=== PATIENT | female | born 1955 | race Caucasian/White ===

== ENCOUNTER 2017-06-03 07:46 | Observation (INO) | payer OTHER ==
[2017-06-03] MEDS ORDERED: Acetaminophen TAB* 325 MG PO ONE (08:26)
[2017-06-03] MEDS ORDERED: NS 0.9% 1000 ML* 1,000 ML IV ONE ×2 (08:26→09:28)
[2017-06-03 08:50] LABS: Hematocrit 38 % (35-47); Hemoglobin 12.6 g/dl (12.0-16.0); Mean Corpuscular HGB Conc 34 g/dl (31-36); Mean Corpuscular Hemoglobin 31 pg (27-31); Mean Corpuscular Volume 90 fL (80-97); Mean Platelet Volume 9 um3 (7.4-10.4); Red Blood Count 4.15 10^6/ul (4.0-5.4); Red Cell Distribution Width 14 % (10.5-15); White Blood Count 7.9 10^3/ul (3.5-10.8)
[2017-06-03 09:07] LABS: ALT 14 U/L (7-52); Albumin 3.2 g/dL (3.2-5.2); Alkaline Phosphatase 43 U/L (34-104); BUN/Creatinine Ratio 18.2 (8-20); Blood Urea Nitrogen 16 mg/dL (6-24); C Reactive Protein 73.29 mg/L (< 5.00); CO2 Carbon Dioxide 25 mmol/L (22-32); Chloride 104 mmol/L (101-111); EGFR African American 84.3 (>60); EGFR Non-African American 65.5 (>60); Globulin 2.8 g/dL (2-4); Glucose 95 mg/dL (70-100); Lipase 13 U/L (11.0-82.0); Sodium 135 mmol/L (133-145)
[2017-06-03 09:27] LABS: Anion Gap 6 mmol/L (2-11)
[2017-06-03] MEDS ORDERED: Iohexol 300* (CONTRAST) 10 ML SDV IV ONE (09:27)
[2017-06-03] MEDS ORDERED: Ketorolac INJ* 30 MG/ML 1 ML VIAL IM ONE (10:01)
[2017-06-03] MEDS ORDERED: Ketorolac INJ* 30 MG/ML 1 ML VIAL IV PUSH ONE (10:02)
[2017-06-03 10:16] LABS: Urine Bacteria Absent (Absent); Urine Bilirubin Negative (Negative); Urine Glucose Negative (Negative); Urine Nitrite Negative (Negative)
[2017-06-03] MEDS ORDERED: Ciprofloxacin 400MG IVPREMIX(* 400 MG/200 ML BAG IVPB ONE (10:41)
--- NOTE | 2017-06-03 10:42 | RAD ---
CLINICAL HISTORY: Abdominal pain COMPARISON: None TECHNIQUE: Multiple contiguous axial CT scans were obtained of the abdomen and pelvis after the administration of intravenous contrast. Coronal and sagittal multiplanar reformations are submitted for review. Oral contrast was administered. Delayed images were obtained through the abdomen and pelvis. FINDINGS: LUNG BASES: The lung bases are clear. LIVER: The liver is normal in shape, size, contour, and attenuation. BILE DUCTS: There is no intrahepatic or extrahepatic biliary dilatation. GALLBLADDER: The gallbladder is not visualized. Surgical clips are noted in the gallbladder fossa. PANCREAS: The pancreas is normal, without mass or ductal dilatation. SPLEEN: Normal in size and appearance. UPPER GI TRACT: Evaluation of the gastrointestinal tract is limited by incomplete gastric distention. The upper GI tract is unremarkable. SMALL BOWEL AND MESENTERY: The small bowel is normal in contour, course, and caliber. There is no obstruction or dilatation. COLON: There is diverticulosis of the descending and sigmoid colon. There is mucosal thickening of the sigmoid colon. There is mild stranding of the fat along the sigmoid colon. ADRENALS: Normal bilaterally. KIDNEYS: The kidneys are normal in shape, size, contour, and axis. There is no hydronephrosis or nephrolithiasis. BLADDER: The bladder is smooth in contour. PELVIC ORGANS: The pelvic organs are not visualized. AORTA: The aorta is normal. IVC: Unremarkable LYMPH NODES: There is no lymphadenopathy by size criteria. ABDOMINAL WALL: There is no evidence for abdominal wall hernia. BONES AND SOFT TISSUES: There are mild diffuse degenerative changes. OTHER: None IMPRESSION: SIGMOID DIVERTICULITIS, WITHOUT LOCULATED FLUID COLLECTION TO SUGGEST ABSCESS.
[2017-06-03] MEDS ORDERED: metroNIDAZOLE TAB* 250 MG PO ONE (10:55)
[2017-06-03] MEDS ORDERED: NS 0.9% 1000 ML* 2,000 ML IV ONE (12:13)
[2017-06-03] MEDS ORDERED: NS 0.9% 1000 ML* 1,000 ML IV SCH (12:15)
[2017-06-03] MEDS ORDERED: hydrALAZINE IV* 20 MG/ML VIAL IV SLOW PU PRN ×2 (12:20→14:16)
[2017-06-03] MEDS: Morphine INJ* 2 MG/ML 1 ML SYRINGE (TWO MG - NEW SYRINGE VERSION) IV PRN ×2 (12:38→18:41)
[2017-06-03] MEDS ORDERED: Lisinopril TAB* 10 MG PO SCH (13:00)
--- NOTE | 2017-06-03 13:33 | RAD ---
HISTORY: Abdominal pain COMPARISONS: CT dated June 03, 2017 VIEWS: Frontal views of the abdomen. FINDINGS: BOWEL: There is a nonspecific bowel gas pattern, with nondilated small bowel gas noted. Oral contrast is noted within the colon. CALCULI: There are no abnormal calculi. BONES AND SOFT TISSUES: There are no osseous abnormalities. OTHER FINDINGS: The lung bases are clear. There is no subphrenic gas. IMPRESSION: NONSPECIFIC BOWEL GAS PATTERN. ORAL CONTRAST IS NOTED WITHIN THE COLON.
--- NOTE | 2017-06-03 14:05 | PN ---
Progress Note - Progress Note Date of Service: 06/03/17 Note: Brief Surgery Note (full consult dictated): S: 62 yo female w/ lower abd pressure/pain since Friday pm, assoc w/ shakes, chills, generalized weakness. Seen at [facility] office yesterday; dx'd w/ UTI; has had 2 doses of Cipro. This a.m. had normal BM w/ sig amt of blood, on and around the stool. Also today c/o RUQ pain, colicky. Has also had one episode of diarrhea since arrival. No prior episodes of anything similar. Mult previous abd surg incl laparotomies for SBO (w/ rsxn), appy, and lap robbin. O: tmax 102.2 other VS noted Gen: WN, WD in NAD Heart: reg Lungs: basically clear w/ a few scattered crackles Abd: mult surg scars; distended; +BS (hyper); soft; moderate tenderness in lower abd, midline as well as RUQ. No peritoneal signs. No CVAT. No hernias. Labs: notable for normal WBC, Hgb, lactate, LFTs, lipase, ammonia; elevated CRP ; U/A w/ WBCs and RBCs as well as 1+ ketones and 3+ leuk esterase. CT Abd and pelvis w/ po and IV contrast: mild inflammatory changes in the region of the sigmoid colon in assoc w/ extensive diverticulosis; no abscess or free air; copious stool throughout colon. A: sigmoid diverticulitis w/o perforation or abscess; I suspect the R-sided colicky pain is from stool/constipation and will resolve with improvement of the diverticulitis. The bleeding could be r/t the d-itis and/or from internal hemorrhoids (noted on her last colonoscopy 2010). P: agree w/ admission for IV hydration, IV abx (Cipro and flagyl), bowel rest, and serial labs and physical exam. Will discuss w/ Dr. Bhatt who will also see her to confirm findings and recommendations.
[2017-06-03] MEDS: Lisinopril TAB* 10 MG PO SCH (15:57)
[2017-06-03] MEDS: Acetaminophen TAB* 325 MG PO PRN (15:57)
[2017-06-03] MEDS: Heparin VIAL(*) 5000 UNITS/ML VIAL (FIVE THOUSAND) SUBCUT SCH ×2 (15:59→21:52)
[2017-06-03] MEDS: Albuterol 2.5 MG/3 ML NEB.SOL* (0.083%) INH PRN (16:06)
--- NOTE | 2017-06-03 17:19 | ED ---
Eliud Pop Angela, scribed for Ramin Sanders MD on 06/03/17 at 0818 . GI/ HPI - HPI Summary HPI Summary: This pt is a 62 y/o female [facility]/o bloody stools today and abd pain since yesterday. Pt reports that she has not been feeling well for the last 4 days. She states that she has had bad chills, intermittent fever (max of 102 F), decreased PO intake, and sleeping all the time. Yesterday, she developed lower abd pain. Pt went to her PCP in [facility] yesterday and had blood in her urine. She was put on Cipro and was tested for sepsis there. Pt notes that his morning she had a bowel movement with blood. She additionally c/o nausea, feeling disorganized. She states she couldn't walk her dogs yesterday due to almost falling. Pt denies vomiting, diarrhea. - History of Current Complaint Chief Complaint: EDAbdPain Time Seen by Provider: 06/03/17 08:14 Stated Complaint: BLOOD IN STOOL Hx Obtained From: Patient Onset/Duration: Started Days Ago, Still Present Timing: Lasting Days Vaginal Bleeding Description: Bright Red Pain Intensity: 8 Location of Pain: Other - right sided Associated Signs and Symptoms: Positive: Nausea, Blood w/Stool, Fever, Chills, Abdominal Pain, Other: - decreased PO intake, not eating well, disorganized. Negative: Vomiting - Additional Pertinent History Primary Care Physician: SUSANNAH - Allergy/Home Medications Allergies/Adverse Reactions: Allergies Allergy/AdvReac Type Severity Reaction Status Date / Time Latex Allergy Severe ANAPHYLACTI Verified 06/03/17 07:50 C Cephalexin [From Keflex] Allergy Hives Verified 06/03/17 07:50 Prednisone Allergy See Comment Verified 06/03/17 08:06 Home Medications: Home Medications Benazepril (NF) [Lotensin (NF)] 20 mg PO DAILY 06/03/17 [History Confirmed 06/03] Ciprofloxacin TAB* [Cipro 500 MG TAB*] 500 mg PO BID 06/03/17 [History Confirmed 06/03/17] Mometasone/Formoter 200/5 MDI* [Dulera 200/5 MDI*] 2 puff INH BID 06/03/17 [ History Confirmed 12/05/17] PMH/Surg Hx/FS Hx/Imm Hx Endocrine/Hematology History: Denies: Hx Diabetes Cardiovascular History: Reports: Hx Hypertension - on medication for Respiratory History: Reports: Hx Asthma - on medication for Comment Only: Hx Pulmonary Edema - ANKLE SWELLING IN THE PAST GI History: Reports: Hx Gastroesophageal Reflux Disease - prilosec PRN, Other GI Disorders - twisted intestine x2 20 years ago Sensory History: Reports: Hx Contacts or Glasses - GLASSES, Hx Hearing Aid Opthamlomology History: Reports: Hx Contacts or Glasses - GLASSES - Surgical History Surgery Procedure, Year, and Place: HYSTERECTOMY-. BLADDER LIFT. PAROTID TUMORS REMOVED. 2 SURGERIES FOR TWISTED INTESTINE. TONSILS. KNEE SURGERY Hx Anesthesia Reactions: No Infectious Disease History: Yes Infectious Disease History: Denies: Traveled Outside the [place] in Last 30 Days - Family History Known Family History: Positive: Hypertension - father, Diabetes - father, Other - Mother: emphysema. Father: stroke, [place] - Social History Alcohol Use: Rare Substance Use Type: Reports: None Smoking Status (MU): Never Smoked Tobacco Review of Systems Constitutional: Other - decreased PO intake, sleeping a lot Positive: Fever - intermittent, Chills Eyes: Negative ENT: Negative Gastrointestinal: Other - bloody stools Positive: Abdominal Pain, Nausea. Negative: Vomiting Positive: hematuria Musculoskeletal: Negative Skin: Negative Neurological: Negative All Other Systems Reviewed And Are Negative: Yes Physical Exam - Summary Physical Exam Summary: VITAL SIGNS: Reviewed. GENERAL: Patient is a well-developed and nourished female who is lying comfortable in the stretcher. Patient is not in any acute respiratory distress. HEAD AND FACE: Normocephalic and atraumatic. EYES: PERRLA, EOMI x 2, No injected conjunctiva. EARS: Hearing grossly intact. Ear canals and tympanic membranes are WNL. MOUTH: Oropharynx within normal limits. NECK: Supple, trachea is midline, no adenopathy, no JVD. CHEST: Symmetric, no tenderness at palpation LUNGS: Clear to auscultation bilaterally. No wheezing or crackles. CVS: RRR, S1 and S2 present, no murmurs or gallops appreciated. ABDOMEN: Soft. Right sided tenderness. No signs of distention. Positive bowel sounds. No rebound no guarding, and no masses palpated. No abdominal bruit or pulsations. 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 No hemorrhoids. No bright red blood or gross old blood. No melena. EXTREMITIES: FROM in all major joints, no edema, no cyanosis or clubbing. NEURO: Alert and oriented x 3. No acute neurological deficits. Speech is normal. SKIN: Dry and warm Triage Information Reviewed: Yes Vital Signs On Initial Exam: Initial Vitals Temp Pulse Resp BP Pulse Ox 99.7 F 114 16 149/81 97 06/03/17 07:50 06/03/17 07:50 06/03/17 07:50 06/03/17 07:50 06/03/17 07:50 Vital Signs Reviewed: Yes - [place] Coma Scale Coma Scale Total: 15 Diagnostics - Vital Signs Vital Signs Temp Pulse Resp BP Pulse Ox 06/03/17 07:50 99.7 F 114 16 149/81 97 - Laboratory Result Diagrams: 06/03/17 08:28 06/03/17 08:28 Lab Statement: Any lab studies that have been ordered have been reviewed, and results considered in the medical decision making process. - CT Abdomen/Pelvis CT CT Interpretation: Positive (See Comments) - IMPRESSION: Sigmoid diverticulitis , without loculated fluid collection to suggest abscess. ED physician has reviewed this radiology report and agrees. CT Interpretation Completed By: Radiologist - EKG 0842 Cardiac Rate: Tachycardia EKG Rhythm: Sinus Rhythm - at 100 bpm EKG Interpretation: No ST elevation. Normal axis. GIGU Course/Dx - Course Assessment/Plan: This pt is a 62 y/o female [facility] c/o bloody stools today and abd pain since yesterday. Pt reports that she has not been feeling well for the last 4 days. She states that she has had bad chills, intermittent fever (max of 102 F), decreased PO intake, and sleeping all the time. Yesterday, she developed lower abd pain. Pt went to her PCP in [facility] yesterday and had blood in her urine. She was put on Cipro and was tested for sepsis there. Pt notes that his morning she had a bowel movement with blood. She additionally c/o nausea, feeling disorganized. She states she couldn't walk her dogs yesterday due to almost falling. Pt denies vomiting, diarrhea. Test results without any significant abnormalities except for CRP of 72.2. Urinalysis is contaminated, therefore Im unable to determine if pt has a UTI. Abdomen/pelvis CT shows sigmoid diverticulitis, without loculated fluid collection to suggest abscess. At this point, I believe the pt has acute diverticulitis and maybe the pt is also dealing with a UTI, however Im unable to determine this due to urine contamination. Since the pt has fever and slight confusion, we will treat the pt with Ciprofloxacin and Flagyl. At this point I discussed the case with Dr. Romero, hospitalist, who accepted the pt for admission. - Diagnoses Provider Diagnoses: Acute diverticulitis, UTI (urinary tract infection) - Physician Notifications Discussed Care Of Patient With: Lizette Romero Time Discussed With Above Provider: 10:53 Instructed by Provider To: Other - I discussed pt care with Dr. Romero, who has agreed to admit the pt. Discharge - Discharge Plan Condition: Stable Disposition: ADMITTED TO [facility] The documentation as recorded by the Eliud broderick Angela accurately reflects the service I personally performed and the decisions made by , Ramin Sanders MD.
[2017-06-03] MEDS ORDERED: Acetaminophen TAB* 325 MG PO PRN (17:20)
--- NOTE | 2017-06-03 18:40 | PN ---
Progress Note - Progress Note Date of Service: 06/03/17 Note: Patient seen and examined by me. Chart and CT images reviewed. Discussed with YUMIKO Tracy and agree with his findings, assessment, and plan.
--- NOTE | 2017-06-03 19:46 | HP ---
CC: Dr. Martin; Dr. Bhatt. * HISTORY AND PHYSICAL: DATE OF ADMISSION: 06/03/17 PRIMARY CARE PROVIDER: Dr. Martin. ATTENDING PHYSICIAN WHILE IN THE HOSPITAL: Lizette Romero DO * (report dictated by Drake Huerta NP). CONSULTING SURGEON: Dr. Bhatt. CHIEF COMPLAINT: Abdominal discomfort. HISTORY OF PRESENT ILLNESS: Ms. Key is a 62-year-old female patient, she has a history of hypertension, history of stroke, asthma, history of GERD, and history of rheumatoid arthritis, not on treatment, who comes into our ER today stating that since Friday she has had progressive worsening abdominal discomfort that she says is much worse when she goes to stand. She says that she has been having chills and fevers at home, but none were documented here. She says that she has been having difficulty with her appetite, but she is essentially anorexic. She does not feel like eating at all. She has been feeling nauseated. She has noticed that her stomach has been getting progressively more distended and she was concerned yesterday and actually went to her primary. This was evaluated and started on Cipro, was told to come to the ER should she has any new symptoms. While today, she had an episode of bright red blood per rectum. She said that she has been having some pain, it is mostly she describes on her right side, right lower and right upper quadrant , particularly when she stands. She says she does not have an appendix, it was taken out with one of her previous surgeries and she also has no gallbladder that was removed as well. She has never been told that she has had diverticulosis and she has never had diverticulitis in the past. She had a colonoscopy within the last year and a half, she believes with Dr. Blair, she is unsure. She denies having any chest pain. Denies having any shortness of breath. She says she feels like there is a band around the top part of her stomach. She was concerned because her symptoms were not getting any better, so she decided to come into the ER today to be further evaluated. PAST MEDICAL HISTORY: Significant for: 1. Hypertension. 2. History of CVA. 3. History of asthma. 4. GERD. 5. History of rheumatoid arthritis. PAST SURGICAL HISTORY: The patient has had: 1. Knee arthroscopy. 2. Hysterectomy. 3. She has had a bladder lift. 4. She has had parotid tumor removal. 5. She has had 2 abdominal surgeries in the past related to twisting in her intestine that is what she says. 6. She has a history of cholecystectomy and she says she had her appendix removed as well. MEDICATIONS: Home meds include: 1. Dulera 2 puffs inhaled b.i.d. 2. Cipro 500 mg p.o. b.i.d. 3. Benazepril 20 mg p.o. daily. 4. She also takes nebulizer twice a day as well. She did not give the name of this. ALLERGIES TO MEDICATIONS: Include LATEX, KEFLEX, PREDNISONE. FAMILY HISTORY: Mother had a history of COPD. Father had a history of CVA, hypertension, and diabetes. SOCIAL HISTORY: The patient is a nonsmoker. She does not drink alcohol. Surrogate decision maker is her son, Aden. REVIEW OF SYSTEMS: There is no documented fever here, she does admit to having them at home. She denies having any significant weight change. There was no double vision. No ear discharge. No rhinorrhea. No sore throat. No thyroid enlargement. Denied having any chest discomfort. She denies having any shortness of breath. There is abdominal pain per my HPI. There is one episode of nausea. There is no vomiting. No dysuria. No frequency. No seizure. No loss of consciousness. No pruritus. No skin ulcerations. Review of 14 systems completed, all others negative. PHYSICAL EXAMINATION GENERAL: At this time, Ms. Key is a 62-year-old female patient. She is sitting in the ED stretcher. She does not appear to be in any acute distress. She is awake and she is alert. VITAL SIGNS: Last blood pressure was 176/60, her heart rate is 90, her respirations were 18, her O2 sat was 96%, and her temperature was 99.7. HEENT: Head: Atraumatic. Eyes: EOMs were intact. Sclerae anicteric and not pale. Throat: Oral mucosa appears to be moist. No oropharyngeal erythema. NECK: Supple. LUNGS: Clear to auscultation bilaterally. No wheezes, rales, or rhonchi. HEART: Sounds S1, S2. Regular rate and rhythm. No murmurs, rubs, or gallops. ABDOMEN: Her abdomen was distended. There was tender in the right upper quadrant. Bowel sounds were present. EXTREMITIES: Pulses were 2+ throughout. She is moving all 4 extremities with 5 /5 strength. NEUROLOGIC: She is awake. She is alert. She is oriented x3. She had no gross focal deficits. SKIN: Intact. DIAGNOSTIC STUDIES/LAB DATA: Today, WBC 7.9, RBC of 4.15, hemoglobin 12.6, hematocrit 38, platelet count of 179. PTT was 32.3. The sodium was 135, potassium pending, chloride of 104, bicarb 25, BUN 16, creatinine 0.88, glucose 95, lactic was 0.8, calcium 9.0. Total bilirubin 0.9, AST pending, ALT 14, alk phos 43. Ammonia 25. CRP of 73.29, BNP 25, lipase was 13. Urine showed 1+ ketones, 1+ blood, positive urobilinogen, 3+ leukocyte esterase, 3+ wbc's, and 3 + rbc's. She did have an abdominal pelvis CT scan today, with impression sigmoid diverticulitis without loculated fluid collection to suggest abscess. She had an EKG obtained today as well, which shows a sinus tachycardia rate of 100. No ST elevations or T-wave inversions. This is reviewed with the previous EKG, appears to be similar with exception of sinus tachycardia is now new. Old medical records were reviewed. ASSESSMENT AND PLAN: Ms. Key is a 62-year-old female patient coming into the ER today with complaints of abdominal discomfort. She will be admitted under inpatient status for: 1. Abdominal pain. This is an atypical presentation. She is having mostly if her pain on her right side. She has no gallbladder and no appendix. Her labs do not suggest obstruction of biliary tree. She is not really tender on the left side. At this point, I am going to treat her for diverticulitis with normal saline. We will panculture her, we will get her on Flagyl and Cipro, but I think a surgical consult is appropriate. Given that she is tender on the right upper quadrant. She is distended as well. I would like to have them evaluated to make sure if there is any other etiology or pathology that we may be overlooking and have the surgical team weigh in on this. We will continue to follow her closely. She is n.p.o. until I can get surgical evaluation. I have placed a call out to Dr. Bhatt. 2. Hypertension. The same acute illness. Last blood pressure was 170, but she is having a fair amount of pain and given some morphine. I am holding her antihypertensives in the setting of acute illness and we will follow. 3. History of cerebrovascular accident. Continue with her current medical regimen. 4. History of GERD. She denies this, but at this point it is not really an active issue. She can follow with her primary. 5. History of asthma. We are going to continue her nebs and her Dulera as prescribed. 6. Rheumatoid arthritis. Continue her medications as prescribed. 7. DVT prophylaxis. She is at high risk and placed on heparin subcu. 8. Code status. She is full code. 9. Fluids, electrolytes, and nutrition. NPO, normal saline at 100 an hour after 2 L of bolus. TIME SPENT: On the admission was 60 minutes; greater than half the time was spent [id number] with the patient obtaining my history and physical, other half of the time was spent going over the plan of care with the patient and implementing plan of care. I did discuss plan of care with my attending, Dr. Romero; she is in agreement. DRAKE HUERTA NP [id number]/[facility] #: [id number] [place]
[2017-06-03] MEDS: metroNIDAZOLE IV 500 MG/100ML* 500 MG/100 ML BAG IVPB SCH (19:59)
[2017-06-03 20:13] LABS: Hematocrit 33 % (35-47); Hemoglobin 11.3 g/dl (12.0-16.0)
[2017-06-03] MEDS: Mometasone/Formoter 200/5 MDI INH SCH (21:30)
[2017-06-03] MEDS: Albuterol/Ipratropium NEB.SOL* Albuterol 2.5 MG/Ipratropium 0.5 MG 3 ML INH SCH (21:30)
--- NOTE | 2017-06-03 21:51 | CONS ---
CC: [facility]; Dr. Martin * SURGICAL CONSULTATION NOTE: DATE OF CONSULT: 06/03/17 ATTENDING SURGEON: Dr. Osmin Bhatt. CHIEF COMPLAINT: Abdominal pain. HISTORY OF PRESENT ILLNESS: This is a 62-year-old female who beginning Friday evening noticed some lower abdominal discomfort. She describes it as pressure. There were no other associated symptoms at that time. However, on Friday, she began to notice shaking chills, sweats, and generalized weakness. This continued into Friday with the same ongoing lower abdominal discomfort. She was seen at the [facility] on Friday thinking that she might have a UTI. Apparently, urinalysis confirmed that as a possibility and she was started on Cipro which she has completed 2 doses. This morning, she had an otherwise normal bowel movement but with significant amounts of blood around and on the stool. She had been otherwise having normal bowel movements up until that time. Since her arrival here in the ED, she has had 1 episode of diarrhea. She has been passing flatus right along. She denies nausea or vomiting, but has been anorexic. She had been tolerating fluids. She did undergo colonoscopy in 2010, which was notable for tortuous colon and some internal hemorrhoids, but otherwise normal. She has never had any prior similar episodes. PAST MEDICAL HISTORY: Asthma (just finished a recent course of prednisone which she finished about 10 days ago; she is followed by [facility]); rheumatoid arthritis (no apparent active disease); hypertension ( intermittent for which she uses benazepril on a p.r.n. basis); stroke 5 to 6 years ago with dysphasia and right-sided weakness, but with full resolution of deficits and negative workup. She denies any known history of cardiovascular disease or personal history of cancer, bleeding, or thromboembolic disease. PAST SURGICAL HISTORY: Previous surgeries include tonsillectomy remotely, left parotid surgery for benign tumors, vaginal hysterectomy without salpingo- oophorectomy, a bladder lift surgery, 2 laparotomies for what sounds like small bowel obstruction with resection, and incidental appendectomy at the second surgery. Laparoscopic cholecystectomy in [address] Navas. No reported surgical or anesthesia complications. CURRENT MEDICATIONS: 1. Benazepril 20 mg once daily p.r.n. (see above). 2. Cipro 500 mg b.i.d. (see above). 3. Dulera 200/5 two inhalations b.i.d. 4. Albuterol nebulizer 2 treatments b.i.d. 5. Recent course of prednisone 60 mg, which she completed about 10 days ago. ALLERGIES: KEFLEX (rash) (the patient has tolerated penicillin). FAMILY HISTORY: Negative for colorectal cancer, anesthesia problems, bleeding, or clotting disorders. SOCIAL HISTORY: The patient lives alone. She is . 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 She denies use of tobacco. She drinks less than or equal to 1 drink per week. She denies any other recreational drug use. REVIEW OF SYSTEMS: General: Recent exacerbation of her asthma with completion of a 3- to 4-week course of prednisone. She did have some consequent weight gain (still up a net of approximately 20 pounds from her baseline). No other recent constitutional symptoms or acute illnesses other than described in the HPI. Cardiovascular: No chest pain, palpitations, or history of heart disease. Respiratory: As above. At the present time, no shortness of breath or cough. GI: As above per HPI. No additions. : Other than some pressure sensation in the suprapubic region, she specifically denies dysuria, increased frequency, or gross hematuria. 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 Endocrine: No diabetes or thyroid dysfunction. 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 PHYSICAL EXAM: Height 5 feet 9 inches, weight 175 pounds. T-max 102.2, blood pressure 151/74, pulse 99 to 114, respirations 16, room air saturation 96%. General: Well-nourished, well-developed female, in no acute distress. Skin: Warm and dry. No suspicious rashes or lesions. HEENT: Pupils equal, round, and reactive. EOMs intact. No conjunctival pallor. Oropharynx: Teeth in good repair. No intraoral lesions. Mucous membranes moist. Neck: No lymphadenopathy, thyromegaly, or masses. Heart: Regular rate and rhythm. No murmur noted. Lungs: Clear to auscultation with a few scattered crackles. No wheezes or rales. Breasts: Not examined. Abdomen: Multiple well-healed surgical scars. She appears distended. Bowel sounds are present and somewhat hyperactive. Abdomen is soft with moderate tenderness in the suprapubic region as well as in the right upper quadrant, but no peritoneal signs. There are no palpable masses or hernias. Back: No spinous process or CVA tenderness. Extremities: No edema. Neurological: Grossly intact. DIAGNOSTIC STUDIES/LAB DATA: White blood cell count 7900, hemoglobin 12.6. Chemistries were essentially normal with the exception of CRP 73. Specifically , her liver function tests, ammonia and lipase levels are normal. Her potassium and AST were unable to be run because of hemolysis. Urinalysis was notable for 1+ ketones and blood, 3+ leukocyte esterase, and 3+ rbc's and wbc' s. Stool was checked in the ED and found to be heme negative. CT scan of the abdomen and pelvis with oral and IV contrast was reviewed personally. There is sigmoid diverticulitis with mild inflammatory changes, but no evidence of perforation or abscess. There is extensive stool throughout the colon especially on the right side. IMPRESSION: Acute sigmoid diverticulitis without abscess or perforation. My impression is that the right-sided abdominal pain which is colicky is related to stool within the colon and consequent constipation from the distal inflammatory process. PLAN: Agree with admission for IV hydration, IV antibiotics, pain control, and bowel rest. The patient understands that surgery is sometimes indicated acutely for diverticulitis, but that most cases will respond to medical therapy. We will continue to follow the patient with serial exams as well as labs which are ordered for tomorrow. The case was discussed with Dr. Bhatt, who will also see the patient for confirmation of findings and recommendations. YUMIKO LAO [id number]/[facility] #: [id number] ADEOLA
[2017-06-03] MEDS: Ciprofloxacin 400MG IVPREMIX(* 400 MG/200 ML BAG IVPB SCH (22:37)
[2017-06-04] MEDS: Ondansetron INJ* 2 MG/ML VIAL IV PRN ×2 (00:39→23:47)
[2017-06-04] MEDS: Acetaminophen TAB* 325 MG PO PRN ×3 (00:41→15:07)
[2017-06-04] MEDS: metroNIDAZOLE IV 500 MG/100ML* 500 MG/100 ML BAG IVPB SCH ×3 (03:53→19:25)
[2017-06-04] MEDS: Heparin VIAL(*) 5000 UNITS/ML VIAL (FIVE THOUSAND) SUBCUT SCH ×3 (04:06→20:12)
[2017-06-04 07:25] LABS: Hematocrit 37 % (35-47); Hemoglobin 12.3 g/dl (12.0-16.0); Mean Corpuscular HGB Conc 34 g/dl (31-36); Mean Corpuscular Hemoglobin 30 pg (27-31); Mean Corpuscular Volume 91 fL (80-97); Mean Platelet Volume 9 um3 (7.4-10.4); Red Blood Count 4.06 10^6/ul (4.0-5.4); Red Cell Distribution Width 14 % (10.5-15); White Blood Count 5.4 10^3/ul (3.5-10.8)
[2017-06-04 07:39] LABS: Calcium 8.7 mg/dL (8.6-10.3); EGFR African American 104.6 (>60); EGFR Non-African American 81.3 (>60); Potassium 3.6 mmol/L (3.5-5.0)
[2017-06-04] MEDS: Mometasone/Formoter 200/5 MDI INH SCH ×2 (07:40→21:11)
[2017-06-04] MEDS: Albuterol/Ipratropium NEB.SOL* Albuterol 2.5 MG/Ipratropium 0.5 MG 3 ML INH SCH ×2 (07:40→21:11)
[2017-06-04] MEDS: Lisinopril TAB* 10 MG PO SCH (08:14)
--- NOTE | 2017-06-04 09:57 | PN ---
Progress Note - Progress Note Date of Service: 06/04/17 SOAP: Subjective: Patient seen and examined at bedside. Reports doing much better today. Pain is very much gone, denies any nausea or vomiting. Had clear liquids for breakfast, tolerated well. No fever or chills. Would like to go home. Objective: Awake and alert, comfortable on her chair, in NAD. VSS, aferile this AM Abdomen soft, NT, ND. No guarding, rigidity or rebound. Labs notes, no leukocytosis, lytes WNL Assessment: Sigmoid diverticulitis, uncomplicated, doing well with antibiotics and bowel rest. Plan: Advance diet as tolerated. May convert to PO antibiotic coverage with Cipro and Flagy OK to d/c to home later this afternoon from a surgical standpoint. F/U [facility] with [facility] in 2 weeks
[2017-06-04] MEDS: Ciprofloxacin 400MG IVPREMIX(* 400 MG/200 ML BAG IVPB SCH ×2 (12:54→22:39)
--- NOTE | 2017-06-04 15:05 | PN ---
Subjective Date of Service: 06/04/17 Interval History: Pt felt. very well this am and was planned for discharge in the afternoon. Now though her temp is 100.4 and she feels "unwell". Denies abd pain Objective Active Medications: Acetaminophen (Tylenol Tab*) 650 mg PO Q4H PRN PRN Reason: FEVER/PAIN Last Admin: 06/04/17 08:14 Dose: 650 mg Albuterol (Ventolin 2.5 Mg/3 Ml Neb.Lindy*) 2.5 mg INH Q2H PRN PRN Reason: SOB/WHEEZING Last Admin: 06/03/17 16:06 Dose: 2.5 mg Albuterol/Ipratropium (Duoneb (Albuterol 2.5 Mg/Ipratropium 0.5 Mg)) 1 neb INH BID [facility] Last Admin: 06/04/17 07:40 Dose: 1 neb Heparin Sodium (Porcine) (Heparin Vial(*)) 5,000 units SUBCUT Q8HR [facility] Last Admin: 06/04/17 13:51 Dose: Not Given Hydralazine HCl (Apresoline Iv*) 5 mg IV SLOW PU Q6H PRN PRN Reason: SYSTOLIC BP GREATER THAN: Last Admin: 06/03/17 14:30 Dose: 5 mg Ciprofloxacin/Dextrose (Cipro 400 Mg Ivpremix(*)) 400 mg in 200 mls @ 200 mls/ hr IVPB Q12H [facility] Last Admin: 06/04/17 12:54 Dose: 200 mls/hr Metronidazole/Sodium Chloride (Flagyl 500 Mg Ivpb*) 500 mg in 100 mls @ 100 mls /hr IVPB Q8H [facility] Last Admin: 06/04/17 14:27 Dose: 100 mls/hr Lisinopril (Prinivil Tab*) 20 mg PO DAILY [facility] Last Admin: 06/04/17 08:14 Dose: 20 mg Mometasone Furoate/Formoterol Fumar (Dulera 200/5 Mdi*) 2 puff INH BID [facility] Last Admin: 06/04/17 07:40 Dose: 2 puff Morphine Sulfate (Morphine Inj (Syringe)*) 2 mg IV Q2H PRN PRN Reason: PAIN Last Admin: 06/03/17 18:41 Dose: 2 mg Ondansetron HCl (Zofran Inj*) 4 mg IV Q6H PRN PRN Reason: NAUSEA Last Admin: 06/04/17 00:39 Dose: 4 mg Vital Signs - 8 hr 06/04/17 06/04/17 07:37 07:42 Temperature 98.4 F Pulse Rate 93 92 Respiratory 18 14 Rate Blood Pressure 157/74 (mmHg) O2 Sat by Pulse 96 96 Oximetry Oxygen Devices in Use Now: None Appearance: 62 yo F in nAD, aAOx3 Eyes: No Scleral Icterus, PERRLA Ears/Nose/Mouth/Throat: NL Teeth, Lips, Gums, Mucous Membranes Moist Neck: NL Appearance and Movements; NL JVP, Trachea Midline Respiratory: Symmetrical Chest Expansion and Respiratory Effort, Clear to Auscultation, Clear to Percussion Cardiovascular: NL Sounds; No Murmurs; No JVD Abdominal: NL Sounds; No Tenderness; No Distention, No Hepatosplenomegaly Lymphatic: No Cervical Adenopathy Extremities: No Edema, No Clubbing, Cyanosis Skin: No Rash or Ulcers, No Nodules or Sclerosis Neurological: Alert and Oriented x 3, NL Muscle Strength and Tone Result Diagrams: 06/04/17 06:40 06/04/17 06:30 Assess/Plan/Problems-Billing Assessment: 62 yo F with h/o asthma presented with abd pain and fever and was found to have diverticulitis - Patient Problems (1) Diverticulitis large intestine Comment: No leukocytosis and abd pain resolved, but low grade temp and not feeling well. will monitor for one more day Pt stated that she had bloody diarrhea on 06/03/17 at home, but stool heme neg and diarrhea resolved (2) Hypertension Comment: cont lisinopril, on benazepril at home. (3) Asthma Comment: Asymptomatic. Continue home dulera (4) DVT prophylaxis Comment: HSQ Status and Disposition: OBV
[2017-06-04] MEDS: Ibuprofen TAB* 600 MG PO PRN (17:25)
[2017-06-05] MEDS: Ibuprofen TAB* 600 MG PO PRN ×2 (01:13→14:04)
[2017-06-05] MEDS: Albuterol 2.5 MG/3 ML NEB.SOL* (0.083%) INH PRN (01:30)
[2017-06-05] MEDS: metroNIDAZOLE IV 500 MG/100ML* 500 MG/100 ML BAG IVPB SCH (03:10)
[2017-06-05] MEDS: Heparin VIAL(*) 5000 UNITS/ML VIAL (FIVE THOUSAND) SUBCUT SCH (04:51)
[2017-06-05 06:48] LABS: Hematocrit 36 % (35-47); Hemoglobin 12.2 g/dl (12.0-16.0); Mean Corpuscular HGB Conc 34 g/dl (31-36); Mean Corpuscular Hemoglobin 31 pg (27-31); Mean Corpuscular Volume 91 fL (80-97); Mean Platelet Volume 9 um3 (7.4-10.4); Red Blood Count 3.99 10^6/ul (4.0-5.4); Red Cell Distribution Width 14 % (10.5-15); White Blood Count 5.7 10^3/ul (3.5-10.8)
[2017-06-05 07:04] LABS: BUN/Creatinine Ratio 10.3 (8-20); Calcium 8.6 mg/dL (8.6-10.3); EGFR African American 113.5 (>60); EGFR Non-African American 88.3 (>60); Potassium 3.8 mmol/L (3.5-5.0)
[2017-06-05 08:08] VITALS: BP 150/86
[2017-06-05] MEDS: Mometasone/Formoter 200/5 MDI INH SCH ×2 (09:32→20:47)
[2017-06-05] MEDS: Albuterol/Ipratropium NEB.SOL* Albuterol 2.5 MG/Ipratropium 0.5 MG 3 ML INH SCH ×2 (09:32→20:47)
[2017-06-05] MEDS ORDERED: Amoxicillin/Clavulanate TAB* 875 MG PO SCH (10:00)
[2017-06-05] MEDS: Lisinopril TAB* 10 MG PO SCH (10:36)
--- NOTE | 2017-06-05 23:30 | DS ---
ADDENDUM NOW INCLUDED ON THIS REPORT CC: Dr. Martin; Dr. Bhatt * DISCHARGE SUMMARY: DATE OF ADMISSION: 06/03/17 DATE OF DISCHARGE: 06/05/17 PRIMARY CARE PROVIDER: Dr. Martin. DISCHARGE DIAGNOSIS: Acute diverticulitis. SECONDARY DIAGNOSES: 1. Hypertension. 2. History of cerebrovascular accident. 3. History of asthma. 4. Gastroesophageal reflux disease. 6. History of rheumatoid arthritis. MEDICATIONS AT DISCHARGE: Include: 1. Augmentin 875 mg p.o. b.i.d. for 10 days total. 2. Lotensin 20 mg daily. 3. Dulera 2 puffs b.i.d. LABORATORY DATA AND STUDIES PERFORMED DURING THE HOSPITAL STAY: Include: On ; white blood cell count of 5.7, hemoglobin of 12.2, hematocrit of 36, and platelets of 165. Sodium is 137, potassium 3.8, chloride 107, carbon dioxide 24, BUN 7, creatinine 0.6. Stool occult blood was negative. Blood cultures were negative and urine cultures were negative. CT of the abdomen and pelvis obtained on 06/03/17, impression: "Sigmoid diverticulitis without loculated fluid collection to suggest abscess." CONSULTATION DURING THE HOSPITAL STAY: Included Dr. Bhatt from General Surgery. HOSPITALIZATION COURSE: Chasity Key is a 62-year-old female with history of asthma that was recently treated with steroids and also had a history of hysterectomy prior to tumor removal and 2 exploratory laparotomies in the past, who presented to the hospital complaining of lower abdominal pain as well as fevers and diarrhea. The patient stated that she had one episode of bloody diarrhea at home prior to her presentation to the ED. In the ED, stool was actually heme negative. A CT of the abdomen was as stated above showed acute diverticulitis. The patient's pain being mostly in the right abdomen. Surgical consult was requested. Dr. Bhatt and Ulises Asencio saw the patient in consultation and noted that the patient's stay was most likely related to diverticulitis and recommended medical treatment with antibiotics. The patient was placed on ciprofloxacin and Flagyl and initially did okay for 24 hours, but later on felt flashed after the ciprofloxacin infusion and she requested for her antibiotics to be changed. She did become febrile on 06/04/17 and at that point her discharge was held for another 24 hours. For the 24 hours, she continued to be afebrile and did okay. Her abdominal pain resolved within 24 hours of hospital stay. She was started on Augmentin at the hospital and did fine with that and she is going to be discharged with the 10 days worth of Augmentin for home. At discharge, the patient is recommended to follow up with Dr. Bhatt in approximately 2 weeks as recommended by the surgical service. The patient is also recommended to follow up with Dr. Martin in approximately 4 to 7 days. PHYSICAL EXAMINATION: At discharge, blood pressure of 150/86, heart rate of 74 and regular, respiratory rate 14, oxygen saturation 98% on room air, temperature 98.7. General: The patient is a very pleasant 62-year-old female who is in no acute distress. Alert, awake, and oriented x3. HEENT: Head: Atraumatic, normocephalic. Eyes: Pupils are equal, reactive to light and accommodation. Oropharynx clear. Mucosa moist. Neck: Supple. No JVD. No bruits bilaterally. Cardiovascular: Regular rate and rhythm. No murmurs. Respiratory: Clear to auscultation bilaterally. Abdomen: Soft, nontender. Bowel sounds are present in all 4 quadrants. Extremities: There is no edema. Pulses are +2 bilaterally. No clubbing or cyanosis. Neuro Evaluation: Speech clear. Cranial nerves II through XII grossly intact. Motor strength is 5/5 bilaterally. Please note that this is a short summary of the patient's hospitalization. Please refer to further medical records for details. ADDENDUM: Please note that after I dictated the original discharge summary, the patient's temperature gaby to 102 degrees. It has happened yesterday, almost exactly the same time as the day prior. At this point, there is no other indication of worsening of the patient's clinical picture. Her WBCs had been unchanged. Her chemistries look okay, and she denies abdominal pain and is tolerating bland diet. At this point, I offered to the patient to either stay overnight or at least take ibuprofen or Tylenol and see if her fever resolves before discharge home. I did educate to the patient that due to diverticulitis, she may be having fevers for the next couple of days. At this point, the patient requested to be discharged home after her ibuprofen dose prior to discharge. She stated that her friend is going to take her home and otherwise she would not have a ride and she really wants to leave [facility]. I educated the patient that if her fever continues to be problematic after the next couple of days or if she develops any worrisome symptoms including, but not limited to abdominal pain, worsening fever, shortness of breath or any other worrisome symptoms, the patient is to come back to the emergency room for reevaluation. [id number]/[facility] #: [id number] Dian- [id number]/[facility] #: [id number] ADEOLA
--- NOTE | 2017-06-06 00:30 | DS ---
DISCHARGE SUMMARY:* ADDENDUM: Please note that after I dictated the original discharge summary, the patient's temperature gaby to 102 degrees. It has happened yesterday, almost exactly the same time as the day prior. At this point, there is no other indication of worsening of the patient's clinical picture. Her WBCs had been unchanged. Her chemistries look okay, and she denies abdominal pain and is tolerating bland diet. At this point, I offered to the patient to either stay overnight or at least take ibuprofen or Tylenol and see if her fever resolves before discharge home. I did educate to the patient that due to diverticulitis, she may be having fevers for the next couple of days. At this point, the patient requested to be discharged home after her ibuprofen dose prior to discharge. She stated that her friend is going to take her home and otherwise she would not have a ride and she really wants to leave tonight. I educated the patient that if her fever continues to be problematic after the next couple of days or if she develops any worrisome symptoms including, but not limited to abdominal pain, worsening fever, shortness of breath or any other worrisome symptoms, the patient is to come back to the emergency room for reevaluation. [id number]/[facility] #: [id number] ADEOLA
== END 2017-06-05 14:20 ==
LOC: ED 07:46 → MED 11:49 → INTOOBSV 11:49
PROVIDERS: ADMIT Hospitalist; ATTEND Internal Medicine
DX: K57.32 Diverticulitis of large intestine without perforation or abscess without bleeding (principal); I10 Essential (primary) hypertension; Z86.73 Personal history of transient ischemic attack (TIA), and cerebral infarction without residual deficits; J45.909 Unspecified asthma, uncomplicated; K21.9 Gastro-esophageal reflux disease without esophagitis; M06.9 Rheumatoid arthritis, unspecified; Z79.899 Other long term (current) drug therapy; Z88.1 Allergy status to other antibiotic agents; Z88.8 Allergy status to other drugs, medicaments and biological substances; R00.0 Tachycardia, unspecified; R10.9 Unspecified abdominal pain
CPT/HCPCS: 36415; 74000; 74177; 80048; 80053; 81003; 81015; 82140; 82272; 83605; 83690; 83880; 85014; 85018; 85025; 85610; 85730; 86140; 87040; 87086; 93005; 94640; 94760; 96365; 96366; 96367; 96375; 99285; A9270-GY; G0378; J0360; J0744; J1644; J1885; J2270; J2405; J3490; Q9967